=== PATIENT | male | born 1950 ===

== ENCOUNTER 2017-08-18 18:20 | Emergency (ER) | payer MEDICAID ==
[2017-08-18 18:44] VITALS: BP 158/98
--- NOTE | 2017-08-19 08:43 | EDM.PDOC ---
ED HPI GENERAL MEDICAL PROBLEM - General Chief Complaint: Laceration Stated Complaint: fish hook Time Seen by Provider: 08/18/17 18:25 Source of Information: Reports: Patient History Limitations: Reports: No Limitations - History of Present Illness INITIAL COMMENTS - FREE TEXT/NARRATIVE: [place] got fish hook embedded in his right thumb. tried to remove it with players and unsuccessful. His last tetanus was 2015. No other injuries or complaints. Onset Date: 08/18/17 Onset Time: 18:00 Location: Reports: Other (right thumb.) Quality: Reports: Ache Severity: Mild Associated Symptoms: Denies: Confusion, Chest Pain, Cough, Diaphoresis, Fever/ Chills, Headaches, Nausea/Vomiting, Rash, Seizure, Shortness of Breath, Syncope , Weakness - Related Data Allergies Allergy/AdvReac Type Severity Reaction Status Date / Time No Known Allergies Allergy Verified 08/18/17 18:30 Home Meds: Home Meds Hydrochlorothiazide 25 mg PO DAILY 08/18/17 [History] ED ROS GENERAL - Review of Systems Review Of Systems: See Below Constitutional: Denies: Fever, Chills HEENT: Denies: Rhinitis, Sinus Problem, Throat Pain Respiratory: Denies: Cough, Sputum Cardiovascular: Denies: Chest Pain, Lightheadedness GI/Abdominal: Denies: Abdominal Pain, Diarrhea, Nausea, Vomiting Skin: Denies: Pruritis, Rash ED EXAM, SKIN/RASH Exam: See Below Exam Limited By: No Limitations General Appearance: Alert, WD/WN, No Apparent Distress Eye Exam: Bilateral Eye: EOMI, PERRL Ears: Normal External Exam, Normal Canal, Hearing Grossly Normal, Normal TMs Nose: Normal Inspection, Normal Mucosa, No Blood Throat/Mouth: Normal Inspection, Normal Lips, Normal Teeth, Normal Gums, Normal Oropharynx, Normal Voice, No Airway Compromise Head: Atraumatic, Normocephalic Neck: Normal Inspection, Supple, Non-Tender, Full Range of Motion Extremities: Normal Inspection, Normal Range of Motion, Non-Tender, No Pedal Edema, Normal Capillary Refill Skin: Warm, Intact, Other (right thumb there is fish hook over the palmar aspect of the distal thumb. minimal tenderness. not presently bleeding.) Course - Vital Signs Text/Narrative:: Pt was reassured. the hook was removed under aseptic precautions under local anesthesia.Pt tolerated the procedure well. simple pressure dressing applied. He is up to date on his tetanus. Infection precautions discussed. Wound care discussed. Followup with primary care next week for recheck. Last Recorded V/S: Last Vital Signs Temp 98.8 F 08/18/17 18:43 Pulse 61 08/18/17 18:43 Resp 12 08/18/17 18:43 BP 158/98 H 08/18/17 18:43 Pulse Ox 95 08/18/17 18:43 Departure - Departure Time of Disposition: 19:00 Disposition: Home, Self-Care 01 Condition: Good Clinical Impression: Removal of foreign body - Discharge Information Instructions: Puncture Wound Referrals: PCP,None [Primary Care Provider] - Forms: ED Department Discharge Additional Instructions: Keep dressing on right thumb for 2 days. Do not allow thumb to get wet for 2 days. Watch for signs of infection such as redness, swelling, drainage, or pain to thumb. - Problem List & Annotations (1) Removal of foreign body SNOMED Code(s): 95123483 - Removal of foreign body Status: Acute - Problem List Review Problem List Initiated/Reviewed/Updated: Yes - Assessment/Plan Assessment:: Fish hook right thumb Plan: Pt was reassured. the hook was removed under aseptic precautions under local anesthesia.Pt tolerated the procedure well. simple pressure dressing applied. He is up to date on his tetanus. Infection precautions discussed. Wound care discussed. Followup with primary care next week for recheck.
== END 2017-08-18 19:03 | disposition home or self-care (01) ==
LOC: LB.ED 18:20
DX: S60.351A Superficial foreign body of right thumb, initial encounter (principal); Z79.899 Other long term (current) drug therapy; W45.8XXA Other foreign body or object entering through skin, initial encounter
CPT/HCPCS: 99283